=== PATIENT | female | born 1950 | race Caucasian/White ===

== ENCOUNTER 2018-02-16 19:15 | Emergency (ER) | payer MEDICARE, OTHER ==
[~2018-02-16] VITALS: Ht 157.5 cm; Wt 70.0 kg
[2018-02-16 19:16] VITALS: BP 123/75
[2018-02-16] MEDS ORDERED: ATOR-2 PO (19:31)
[2018-02-16] MEDS ORDERED: LISI2.5T PO (19:31)
[2018-02-16] MEDS ORDERED: MELO7.5T31 PO (19:31)
[2018-02-16] MEDS ORDERED: LIDOCAINE 1%-EPI 1:100K, 30ML ONE (19:33)
[2018-02-16] MEDS ORDERED: LIDOCAINE 2%, 10ML INFIL ONE (20:00)
[2018-02-16] MEDS ORDERED: LIDOCAINE 1%-EPI 1:100K, 30ML INFIL ONE (20:00)
[2018-02-16] MEDS ORDERED: BACITRACIN ZINC OINT 500U/GM, 0.9 GM ONE (20:39)
== END 2018-02-16 20:51 | disposition home or self-care (01) ==
LOC: ED 20:45
DX: S91.012A Laceration without foreign body, left ankle, initial encounter (principal); W27.1XXA Contact with garden tool, initial encounter; Y93.89 Activity, other specified; Y92.090 Kitchen in other non-institutional residence as the place of occurrence of the external cause; Y99.8 Other external cause status
CPT/HCPCS: 12041; 73610; 99284; J3490